=== PATIENT | male | born 1975 | race Caucasian/White ===

== ENCOUNTER → 2018-09-05 | Outpatient (CLI) | payer OTHER | LOC: M SMT 11:58 | DX: N13.2 Hydronephrosis with renal and ureteral calculous obstruction (principal) | CPT/HCPCS: 74018 ==

== ENCOUNTER → 2024-06-14 | Outpatient (CLI) | payer OTHER ==
[~2024-06-14] MED LIST: ACET1TAB55 PO; ACET400C PO; ADDE30CA3 PO; ALBU8.5H; ALPR2TAB3; ASHW300C PO; DEXT1TAB19 PO; DICY20TA20; DOXE100CA PO; EQL50TAB2 PO; FAMO40TA3; GABA-1490; GINS100C PO; IBUP200C25 PO; INCR1INH; L-LY500T23 PO; LAMO25TA4 PO; LEVE500T5; MELA3TAB29 PO; MELO15TA28; METO1TAB87 PO; NAPR-849 PO; NICO1DIS10; OMEP40CA5; ONDA-83 PO; OXYC-517 PO; PARO30TA3 PO; PREG200C2 PO; PRIM250T8; PRIM50TA6; QUET100T2; REXU1TAB6; SAW1CAP3 PO; SM G150T PO; SPIR12.9 INH; THEA200C PO; TIZA10TA; TRAZ1TAB14 PO; VIT1TABL PO; VITA100020 PO; VITAD400CA FT; VITMTA PO; ZOLP10TA2 PO; [UNRECOGNIZED DRUG - CODE] PO
== END ==
LOC: M ONCR 12:40
PROVIDERS: ATTEND General Practice
DX: C49.22 Malignant neoplasm of connective and soft tissue of left lower limb, including hip (principal); F17.210 Nicotine dependence, cigarettes, uncomplicated; Z79.899 Other long term (current) drug therapy; Z92.21 Personal history of antineoplastic chemotherapy; Z90.49 Acquired absence of other specified parts of digestive tract; Z80.0 Family history of malignant neoplasm of digestive organs; Z80.49 Family history of malignant neoplasm of other genital organs; Z88.8 Allergy status to other drugs, medicaments and biological substances

== ENCOUNTER 2024-07-06 09:51 | Outpatient (RCR) | payer OTHER | END 2024-07-07 | LOC: M ONCR 09:51 | PROVIDERS: ATTEND General Practice | DX: Z51.0 Encounter for antineoplastic radiation therapy (principal); C49.22 Malignant neoplasm of connective and soft tissue of left lower limb, including hip ==

== ENCOUNTER 2024-08-03 10:05 | Outpatient (RCR) | payer OTHER | END 2024-08-06 | LOC: M ONCR 10:05 | PROVIDERS: ATTEND General Practice | DX: Z51.0 Encounter for antineoplastic radiation therapy (principal); C49.22 Malignant neoplasm of connective and soft tissue of left lower limb, including hip ==

== ENCOUNTER 2024-08-14 10:13 | Outpatient (RCR) | payer OTHER | END 2024-09-06 | LOC: M ONCR 10:13 | PROVIDERS: ATTEND General Practice | DX: Z51.0 Encounter for antineoplastic radiation therapy (principal); C49.22 Malignant neoplasm of connective and soft tissue of left lower limb, including hip ==

== ENCOUNTER 2024-10-28 13:31 | Inpatient (IN) | payer OTHER ==
[~2024-10-28] VITALS: Ht 177.8 cm; Wt 75.5 kg
[~2024-10-28 13:31] MED LIST changes: -ALBU8.5H; +ALBU8.5H INH; -ALPR2TAB3; +ALPR2TAB3 PO; -REXU1TAB6; +REXU1TAB6 PO; -TIZA10TA; +TIZA10TA PO
[2024-10-28] MEDS: oxyCODONE 5MG TAB PO ONE (15:31)
[2024-10-28 15:59] LABS: BASO # 0.1 10^3/uL (0.0-0.2); BASO % 0.5 % (0.0-1.0); EOS # 0.2 10^3/uL (0.0-0.5); EOS % 2.3 % (0.0-3.0); HEMATOCRIT 37.1 % (42.0-52.0); HEMOGLOBIN 12.1 g/dl (13.5-17.5); LYMPH # 1.2 10^3/uL (1.5-5.0); LYMPH % 11.2 % (24.0-44.0); MEAN CORPUSCULAR HEMOGLOBIN 28.3 pg (27.0-33.0); MEAN CORPUSCULAR HGB CONC 32.6 g/dl (32.0-36.5); MEAN CORPUSCULAR VOLUME 86.9 fl (80.0-96.0); MONO # 1.1 10^3/uL (0.0-0.8); MONO % 10.3 % (2.0-8.0); NEUTROPHILS # 7.7 10^3/uL (1.5-8.5); NEUTROPHILS % 75.2 % (36.0-66.0); PLATELET COUNT, AUTOMATED 391 10^3/uL (150-450); RED BLOOD COUNT 4.27 10^6/uL (4.30-6.10); WHITE BLOOD COUNT 10.3 10^3/uL (4.0-10.0)
[2024-10-28 16:03] LABS: ERYTHROCYTE SEDIMENTATION RATE > 130 mm/hr (0-15)
[2024-10-28 16:21] LABS: BLOOD UREA NITROGEN 17 MG/DL (9-23); C REACTIVE PROTEIN QUANTITATIV 13.97 MG/DL (<1.0); CALCIUM LEVEL 9.6 MG/DL (8.5-10.1); CARBON DIOXIDE LEVEL 28 MMOL/L (20-31); CHLORIDE LEVEL 103 MMOL/L (98-107); GLOMERULAR FILTRATION RATE > 60.0 (>60); GLUCOSE, FASTING 93 MG/DL (60-100); POTASSIUM SERUM 4.4 MMOL/L (3.5-5.1); SODIUM LEVEL 138 MMOL/L (136-145)
[2024-10-28] MEDS: cefTRIAXone SOD 1 GM in DEXTROSE 5% (D5W) ADV/MINI-BAG 50 ML IV ONE (17:18)
[2024-10-28] MEDS ORDERED: ISOVUE-370 76% 100ML VIAL As Ordered ONE (18:24)
[2024-10-28] MEDS ORDERED: LAMO100T3 PO (18:38)
[2024-10-28] MEDS ORDERED: ZOLP12.535 PO (18:44)
[2024-10-28] MEDS ORDERED: ASPI-531 PO (18:45)
[2024-10-28] MEDS ORDERED: ZOLO100T PO (18:45)
[2024-10-28] MEDS ORDERED: HOME MED LIST COMPLETE! XX SCH (18:50)
[2024-10-28] MEDS: PIPERACILLIN/TAZOBACTAM SOD 4.5 GM in DEXTROSE 5% (D5W) ADV/MINI-BAG 50 ML IV SCH (19:22)
[2024-10-28] MEDS: oxyCODONE 5MG TAB PO PRN (19:39)
[2024-10-28 20:23] LABS: PROCALCITONIN 0.11 ng/ml
[2024-10-28] MEDS: zolPIDEM TARTRATE 5 MG TAB PO SCH (21:00)
[2024-10-28] MEDS ORDERED: ALBUTEROL 90 MCG/ACT 8GM HFA INHALER INH PRN (22:10)
[2024-10-28] MEDS ORDERED: ONDANSETRON 4MG TAB PO PRN (22:10)
[2024-10-28] MEDS ORDERED: oxyCODONE 5MG TAB PO PRN (22:10)
[2024-10-28] MEDS ORDERED: tiZANidine 4 MG TAB PO PRN (22:10)
[2024-10-28] MEDS ORDERED: ALPRAZolam 0.5 MG TAB PO PRN (22:10)
[2024-10-28] MEDS: traZODone 50 MG TAB PO SCH (22:54)
[2024-10-29 03:25] VITALS: BP 103/52; TEMP 97.2; O2SAT 97
[2024-10-29 05:57] LABS: HEMATOCRIT 33.6 % (42.0-52.0); HEMOGLOBIN 10.8 g/dl (13.5-17.5); MEAN CORPUSCULAR HGB CONC 32.1 g/dl (32.0-36.5); PLATELET COUNT, AUTOMATED 365 10^3/uL (150-450); RED BLOOD COUNT 3.86 10^6/uL (4.30-6.10); WHITE BLOOD COUNT 8.4 10^3/uL (4.0-10.0)
[2024-10-29 06:21] LABS: BLOOD UREA NITROGEN 17 MG/DL (9-23); CARBON DIOXIDE LEVEL 27 MMOL/L (20-31); CHLORIDE LEVEL 105 MMOL/L (98-107); CREATININE FOR GFR 0.86 MG/DL (0.70-1.30); GLOMERULAR FILTRATION RATE > 60.0 (>60); GLUCOSE, FASTING 91 MG/DL (60-100); POTASSIUM SERUM 3.9 MMOL/L (3.5-5.1); SODIUM LEVEL 139 MMOL/L (136-145)
[2024-10-29] MEDS: TIOTROPIUM INHALER/CAPSULE (SPIRIVA) INH SCH (08:05)
[2024-10-29] MEDS ORDERED: BREXPIPRAZOLE 2MG TABLET (REXULTI) PO SCH (09:00)
[2024-10-29] MEDS ORDERED: DOXEPIN 25 MG CAP PO SCH (09:00)
[2024-10-29] MEDS ORDERED: AUVELITY PO SCH (09:00)
[2024-10-29] MEDS: VANCOMYCIN HCL 1,500 MG, VIAL MATE ADAPTER 1 EACH in NS 500 ML IV ONE (09:54)
[2024-10-29] MEDS: AMPHETAMINE/DEXTROAMPHETAMINE 5 MG *ER* CAPSULE (ADDERALL XR) PO SCH (09:57)
[2024-10-29] MEDS: MULTIVITAMINS/MINERALS THERAP 1 TAB PO SCH (09:59)
[2024-10-29] MEDS: PREGABALIN 100 MG CAP (LYRICA) PO SCH (09:59)
[2024-10-29] MEDS: ASPIRIN 81MG ENTERIC TABLET PO SCH (09:59)
[2024-10-29] MEDS: SERTRALINE 100 MG TAB PO SCH (09:59)
[2024-10-29] MEDS: METOPROLOL TART 25 MG TABLET PO SCH (10:01)
[2024-10-29] MEDS: ENOXAPARIN 40MG/0.4ML SYRINGE (J1650 PER 10MG) SC SCH (10:01)
[2024-10-29 12:00] VITALS: BP 94/59; TEMP 98.3; O2SAT 96
[2024-10-29] MEDS: lamoTRIgine 25MG TAB PO SCH (13:00)
[2024-10-29] MEDS ORDERED: LIDOCAINE 1% MDV 20ML VIAL As Ordered ONE (15:30)
[2024-10-29] MEDS: VANCOMYCIN HCL 1,500 MG, VIAL MATE ADAPTER 1 EACH in NS 500 ML IV SCH (16:37)
[2024-10-29 17:00] VITALS: BP 111/61; TEMP 97; O2SAT 97
[2024-10-29] MEDS: DOXEPIN 25 MG CAP PO SCH (20:42)
[2024-10-29] MEDS: BREXPIPRAZOLE 2MG TABLET (REXULTI) PO SCH (20:42)
[2024-10-29 20:45] VITALS: BP 116/65; TEMP 98.1; O2SAT 96
[2024-10-29] MEDS ORDERED: traZODone 50 MG TAB PO SCH (21:00)
[2024-10-30 08:04] VITALS: BP 118/68
[2024-10-30 10:29] LABS: BASO # 0.1 10^3/uL (0.0-0.2); BASO % 0.9 % (0.0-1.0); EOS # 0.3 10^3/uL (0.0-0.5); EOS % 2.9 % (0.0-3.0); HEMATOCRIT 33.8 % (42.0-52.0); HEMOGLOBIN 10.8 g/dl (13.5-17.5); LYMPH # 1.2 10^3/uL (1.5-5.0); LYMPH % 13.7 % (24.0-44.0); MEAN CORPUSCULAR HEMOGLOBIN 27.8 pg (27.0-33.0); MEAN CORPUSCULAR VOLUME 87.1 fl (80.0-96.0); MONO # 0.8 10^3/uL (0.0-0.8); MONO % 9.7 % (2.0-8.0); NEUTROPHILS # 6.2 10^3/uL (1.5-8.5); NEUTROPHILS % 72.3 % (36.0-66.0); PLATELET COUNT, AUTOMATED 398 10^3/uL (150-450); RED BLOOD COUNT 3.88 10^6/uL (4.30-6.10); WHITE BLOOD COUNT 8.6 10^3/uL (4.0-10.0)
[2024-10-30] MEDS ORDERED: LEVO75TAB PO (11:08)
[2024-10-30 12:00] VITALS: BP 102/60; TEMP 97.1; O2SAT 95
== END 2024-10-30 12:16 | disposition home or self-care (01) | DRG 721 ==
LOC: M ED 13:31 → M MSPAV 10-29 03:18
PROVIDERS: ADMIT Internal Medicine; ATTEND Internal Medicine
PROC: 0J9M30Z Drainage of Left Upper Leg Subcutaneous Tissue and Fascia with Drainage Device, Percutaneous Approach (ICD-10-PCS; principal; 2024-10-29 15:30)
DX: T81.41XA Infection following a procedure, superficial incisional surgical site, initial encounter (principal); C49.21 Malignant neoplasm of connective and soft tissue of right lower limb, including hip; T81.31XA Disruption of external operation (surgical) wound, not elsewhere classified, initial encounter; Y83.8 Other surgical procedures as the cause of abnormal reaction of the patient, or of later complication, without mention of misadventure at the time of the procedure; I10 Essential (primary) hypertension; F17.200 Nicotine dependence, unspecified, uncomplicated; G89.29 Other chronic pain; M54.9 Dorsalgia, unspecified; L03.116 Cellulitis of left lower limb; F39 Unspecified mood [affective] disorder; G40.909 Epilepsy, unspecified, not intractable, without status epilepticus; R29.6 Repeated falls; Z79.899 Other long term (current) drug therapy; Z88.8 Allergy status to other drugs, medicaments and biological substances

== ENCOUNTER 2024-10-30 12:22 | Outpatient (CLI) | payer OTHER ==
[~2024-10-30] VITALS: Ht 177.8 cm; Wt 75.0 kg
[~2024-10-30 12:22] MED LIST changes: +ASPI-531 PO; +LAMO100T3 PO; +LEVO75TAB PO; +ZOLO100T PO; +ZOLP12.535 PO
[2024-10-30 12:35] VITALS: BP 126/68; O2SAT 99
[2024-10-30] MEDS: DALBAVANCIN 1,500 MG in D5W 250 ML IV ONE (13:16)
[2024-10-30 14:15] VITALS: BP 109/67; O2SAT 99
== END 2024-10-30 14:10 | disposition home or self-care (01) ==
LOC: M INFU 12:22
PROVIDERS: ATTEND Internal Medicine
DX: C49.22 Malignant neoplasm of connective and soft tissue of left lower limb, including hip (principal); L03.116 Cellulitis of left lower limb
CPT/HCPCS: 96365; J0875